=== PATIENT | female | born 1975 | race Caucasian/White ===

== ENCOUNTER 2019-06-30 20:48 | Emergency (ER) | payer MEDICAID ==
[~2019-06-30] VITALS: Ht 170.2 cm; Wt 50.3 kg
--- NOTE | 2019-06-30 21:01 | NUR ---
ED Nurse Note: pt presents to ED with pain and swelling of space in between 4th and 5th phalanges of the L foot. pt states the pain started more than a week ago and that the pain has gotten worse. She also reports increased swelling. upon inspection, there is a 1 cm abscess with puss and erythema around it. it is mildly swollen in comparison with the R foot
[2019-06-30 21:04] VITALS: BP 98/64
[2019-06-30] MEDS ORDERED: BACTRIM DS TAB1 EAC1 ORAL (21:12)
[2019-06-30] MEDS ORDERED: MUPIROCIN22 GM TOPIC (21:12)
--- NOTE | 2019-06-30 21:13 | Emergency Room Report ---
History of Present Illness General Chief Complaint: Pain Source: Patient Present Illness [facility] This is a 43-year-old female with no past medical history. She presents with chief complaint of left foot pain. This been ongoing for a week. There is no trauma. She has some swelling and now whitish discoloration to the webspace between her left fourth and fifth toes. Pain is throbbing in nature. Worse with walking. No fever chills. No drainage. Allergies: Coded Allergies: No Known Allergies (Unverified , 06/30/19) Patient History Past Medical History: see triage record, old chart reviewed Past Surgical History: none Pertinent Family History: none Social History: Denies: smoking Last Menstrual Period: 06/2019 Now: No : 0 Para: 0 Immunizations: other Reviewed Nursing Documentation: PMH: Agreed; PSxH: Agreed Nursing Documentation-PMH Past Medical History: No Stated History Review of Systems Eye: Denies: eye pain, blurred vision ENT: Denies: ear pain, nose congestion, throat swelling Respiratory: Denies: cough, shortness of breath Cardiovascular: Denies: chest pain, palpitations Gastrointestinal: Denies: abdominal pain, diarrhea, nausea, vomiting Musculoskeletal: Denies: back pain, joint pain Skin: Denies: rash Neurological: Denies: headache, numbness Endocrine: Denies: increased thirst, increased urine Hematologic/Lymphatic: Denies: easy bruising All Other Systems: negative except mentioned in HPI Physical Exam Vital Signs Date Time Temp Pulse Resp B/P (MAP) Pulse Ox O2 Delivery O2 Flow Rate FiO2 06/30/19 20:53 97.7 68 16 98/64 (75) 100 Vitals normal Sp02 EP Interpretation: reviewed, normal General Appearance: well appearing, no apparent distress, alert Head: normocephalic, atraumatic Eyes: bilateral eye PERRL, bilateral eye EOMI ENT: hearing grossly normal, normal pharynx Neck: full range of motion, supple, no meningismus Respiratory: chest non-tender, lungs clear, normal breath sounds Cardiovascular #1: regular rate, rhythm, no murmur Gastrointestinal: normal bowel sounds, non tender, no mass, no organomegaly, no bruit, non-distended Musculoskeletal: back normal, gait/station normal, normal range of motion, other - Left foot: On the last webspace, there is a small abscess. No crepitance. Localized to only this area. No extension of the foot. Psychiatric: mood/affect normal Procedures Incision and Drainage Incision and Drainage : Consent: Verbal Site: Foot, left Blade Size: 11 I & D Procedure: betadine prep Wound Location: lower extremity Patient Tolerated: Well Complications: None Progress Using an 11 blade scalpel, I made an incision and expressed the abscess. I removed the skin tissue with a small scissor. Good pink tissue underneath. Patient tolerated procedure without any problem. No complication. Dressing done. Medical Decision Making Diagnostic Impression: Primary Impression: Abscess of toe of left foot ER Course Patient with a superficial abscess to the fourth webspace on the left foot. No necrotizing fasciitis. No foreign body. Last Vital Signs Date Time Temp Pulse Resp B/P (MAP) Pulse Ox O2 Delivery O2 Flow Rate FiO2 06/30/19 21:04 97.7 85 16 98/64 100 Status: improved Disposition: HOME, SELF-CARE Condition: Stable Scripts Trimethoprim/Sulfamethoxazole 160/800* (BACTRIM DS TABLET*) 1 Each Tablet 1 TAB ORAL Q12H, #14 TAB 0 Refills Prov: Fran Meeks MD 06/30/19 Mupirocin* (MUPIROCIN*) 22 Gm Oint...g. 1 APPLIC TOPIC THREE TIMES A DAY, #22 GM Prov: Fran Meeks MD 06/30/19 Additional Instructions: Keep wound clean. Clean first with hydroperoxide and then apply antibiotic ointment. Afterward put a small Band-Aid. Follow-up with your doctor within a week for recheck. Return if worse. Fran Meeks MD Jun 30, 2019 21:13
[2019-06-30] MEDS ORDERED: Neosporin Oint Ud Pkt TOPIC ONE (21:15)
--- NOTE | 2019-06-30 21:17 | NUR ---
ER DISCHARGE NOTE: Patient is cleared to be discharged per ERMD, pt is aox4, on room air, with stable vital signs. pt was given dc and prescription instructions, pt was able to verbalize understanding, pt id band removed without complications. pt is able to ambulate with steady gait. pt took all belongings.
[2019-06-30 21:18] VITALS: BP 98/64
== END 2019-06-30 21:18 | disposition home or self-care (01) ==
LOC: EMR 21:18
DX: L02.612 Cutaneous abscess of left foot (principal)
CPT/HCPCS: 10060; Z7502; 99283